=== PATIENT | female | born 1990 | race African-American/Black ===

== ENCOUNTER 2017-01-31 10:52 | Emergency (ER) | payer MEDICAID ==
--- NOTE | 2017-01-31 11:59 | ER Document Report ---
ED Skin Rash/Insect Bite/Abscs - General Chief Complaint: Abscess Stated Complaint: POSSIBLE ABSCESS Mode of Arrival: Ambulatory Information source: Patient Notes: Patient presents complaining of a Bartholin gland abscess for the past 5 months that worsened over the past 2 days. Patient denies any fever. Patient states that she went to her preschool assistant director office and they advised her to come here for treatment. Patient states that she wants to go to surgery she can have this definitively managed. TRAVEL OUTSIDE OF THE [place] IN LAST 30 DAYS: No - HPI Patient complains to provider of: Tender/swollen area Onset: Other Onset/Duration: Worse - 5 months Quality of pain: Sharp Pain Level: 5 Skin Character: Erythema, Tenderness, Warm Skin Temperature: Warm Quality of rash: Painful Exacerbated by: Movement, Walking Similar symptoms previously: No Recently seen / treated by doctor: Yes - Related Data Allergies/Adverse Reactions: amoxicillin Allergy (Verified 01/31/17 10:55) erythromycin base [Erythromycin Base] Allergy (Verified 04/23/15 21:06) Past Medical History - General Information source: Patient - Social History Smoking Status: Current Every Day Smoker Frequency of alcohol use: Occasional Drug Abuse: None Occupation: food scientist Lives with: Family Family History: Reviewed & Not Pertinent Patient has suicidal ideation: No Patient has homicidal ideation: No - Medical History Medical History: Negative Pulmonary Medical History: Reports: Hx Asthma - childhood Renal/ Medical History: Denies: Hx Peritoneal Dialysis Surgical Hx: Negative - Immunizations Hx Diphtheria, Pertussis, Tetanus Vaccination: No - given in ER today Review of Systems - Review of Systems Constitutional: No symptoms reported. denies: Fever EENT: No symptoms reported Cardiovascular: No symptoms reported Respiratory: No symptoms reported Gastrointestinal: No symptoms reported Genitourinary: No symptoms reported Female Genitourinary: Other - Bartholin's gland swelling Musculoskeletal: No symptoms reported Skin: Lumps - Right labia Hematologic/Lymphatic: No symptoms reported Neurological/Psychological: No symptoms reported Physical Exam - Vital signs Vitals: Temp Pulse Resp BP Pulse Ox 98.6 F 99 16 132/79 H 100 01/31/17 10:58 01/31/17 10:58 01/31/17 10:58 01/31/17 10:58 01/31/17 10:58 - General General appearance: Appears well, Alert In distress: None - Respiratory Respiratory status: No respiratory distress Chest status: Nontender Breath sounds: Normal Chest palpation: Normal - Cardiovascular Rhythm: Regular Heart sounds: S1 appreciated, S2 appreciated Murmur: No - Genitourinary External exam: Other - Very large erythematous Bartholin's gland abscess - Extremities General upper extremity: Normal inspection, Normal ROM General lower extremity: Normal inspection, Normal ROM - Neurological Neuro grossly intact: Yes Cognition: Normal Guevara Coma Scale Eye Opening: Spontaneous Guevara Coma Scale Verbal: Oriented Durand Coma Scale Motor: Obeys Commands Durand Coma Scale Total: 15 - Psychological Associated symptoms: Normal affect, Normal mood - Skin Skin Temperature: Warm Skin Moisture: Dry Skin Color: Erythema Skin irregularity: Abscess - Right Bartholin's gland Course - Re-evaluation Re-evalutation: 01/31/17 11:58 Offered patient incision and drainage, patient states she was told to come to the emergency department so that she could see Dr. Bradshaw and be taken to the OR so that she would never have this return again. Spoke with Dr. Cordova regarding patient presentation to the emergency department. Dr. Steinberg states that he offered patient incision and drainage in the office, patient declined and he advised her to come to the emergency department for evaluation. 01/31/17 12:[address] Bradshaw, nurse with relay message, Dr Bradshaw in a case at present 01/31/17 12:[address] Bradshaw who states that patient does not require emergent surgery to treat her Bartholin's abscess. Recommends incision and drainage performed either in the emergency department or having her return to the PLUG MACHINE OPERATOR office to have this incision and drainage performed there. States that after infection has resolved patient can seek surgical treatment as an outpatient. - Vital Signs Vital signs: Temp Pulse Resp BP Pulse Ox 98.1 F 69 16 109/60 100 01/31/17 14:40 01/31/17 14:40 01/31/17 10:58 01/31/17 14:40 01/31/17 14:40 Procedures - Incision and Drainage Right Labia Type: Simple Anesthetic type: 1% Lidocaine mL's of anesthetic: 1 Blade size: 11 I&D procedure: Betadine prep applied Incision Method: Incision made by scalpel Amount/type of drainage: large amount of purulent drainage Notes: 01/31/17 14:[address] a Word catheter due to patient's discomfort. Patient refused to have incision made larger to accommodate the catheter. Patient refused any additional lidocaine due to pain. Discharge - Discharge Clinical Impression: Bartholin's gland abscess, Encounter for incision and drainage procedure Condition: Stable Disposition: HOME, SELF-CARE Instructions: Trimethoprim-Sulfa ([facility]), Oral Narcotic Medication ([facility]), Abscess ([facility]), Post Incision and Drainage Additional Instructions: Return immediately for any new or worsening symptoms Followup with your primary care provider, call tomorrow to make a followup appointment Follow-up with your preschool assistant director for recheck in 2 days. Prescriptions: Oxycodone HCl/Acetaminophen [Percocet 5-325 mg Tablet] 1 tab PO ASDIR PRN #15 tablet PRN Reason: Sulfamethoxazole/Trimethoprim [Bactrim Ds Tablet] 1 each PO BID #14 tablet Forms: Return to Work Referrals: KM CORDOVA MD [Primary Care Provider] - 02/02/17
[2017-01-31] MEDS ORDERED: OXYCODONE-ACETAMINOPHEN 5-325 MG TABLET PO ONE (12:48)
[2017-01-31] MEDS ORDERED: SULFAMETHOXAZOLE/TRIMETHOPRIM 800-160 MG TABLET PO ONE (12:50)
[2017-01-31 14:46] VITALS: BP 109/60
== END 2017-01-31 14:46 | disposition home or self-care (01) ==
LOC: ER 10:52
PROC: 0U9LXZZ Drainage of Vestibular Gland, External Approach (ICD-10-PCS; principal; 2017-01-31)
DX: N75.1 Abscess of Bartholin's gland (principal); F17.200 Nicotine dependence, unspecified, uncomplicated; Z88.0 Allergy status to penicillin; Z88.1 Allergy status to other antibiotic agents
CPT/HCPCS: 56420; 99282; J3490

== ENCOUNTER 2017-06-10 20:26 | Emergency (ER) | payer MEDICAID ==
[2017-06-10] MEDS ORDERED: CLINDAMYCIN HCL 150 MG CAPSULE PO ONE (23:24)
[2017-06-10] MEDS ORDERED: HYDROMORPHONE HCL INJ/PF 2 MG/ML AMPULE IM ONE (23:25)
[2017-06-10] MEDS ORDERED: LIDOCAINE 2% INJ (20 MG/ML) 20 ML MDV INJ ONE (23:25)
[2017-06-11] MEDS ORDERED: HYDROCODONE/ACETAMINOPHEN 5-325 MG 6 TAB/DSPK PO PRN (02:03)
[2017-06-11] MEDS ORDERED: HYDROCODONE/ACETAMINOPHEN 5-325 MG TABLET PO ONE (02:03)
--- NOTE | 2017-06-11 02:08 | ER Document Report ---
ED General - General Chief Complaint: Abscess Stated Complaint: VAGINAL PROBLEM Time Seen by Provider: 06/10/17 23:17 Notes: Patient is a 26-year-old female presents with complaint of a Bartholin's gland abscess. He said this is a fourth time she has had them. [facility] She is post follow-up with him on about possibly having what sounds be marsupialization done. She started having low- grade fevers today. No other complaints. TRAVEL OUTSIDE OF THE [place] IN LAST 30 DAYS: No - Related Data Allergies/Adverse Reactions: amoxicillin Allergy (Verified 06/10/17 20:46) erythromycin base [Erythromycin Base] Allergy (Verified 06/10/17 20:46) Past Medical History - Social History Smoking Status: Never Smoker Frequency of alcohol use: None Drug Abuse: None Family History: Reviewed & Not Pertinent Pulmonary Medical History: Reports: Hx Asthma - childhood Renal/ Medical History: Denies: Hx Peritoneal Dialysis - Immunizations Hx Diphtheria, Pertussis, Tetanus Vaccination: No - given in ER today Physical Exam - Vital signs Vitals: Temp Pulse Resp BP Pulse Ox 100.1 F 110 H 24 H 123/86 H 97 06/10/17 20:46 06/10/17 20:46 06/10/17 20:46 06/10/17 20:46 06/10/17 20:46 Course - Re-evaluation Re-evalutation: 06/11/17 03:28 On initial incision and drainage patient would not let me make a significant incision therefore is just a small hole that straining the Bartholin's gland abscess from. She does not well tolerate this well at all. when patient was going to be discharged she is concerned as starting to feel back up she is not unexpected being that she would not tolerate me making a decent size incision. I went back talk to her again and told her the importance of making decent size incision. She is adamant that she is not when he cut on anymore. Her mother says that she does not tolerate pain all and that this is typical of her. I informed her that I am willing to actually sedate her for this. Patient first is refusing but now she is going to let me try to sedate her. I will give her IM ketamine to see if this helps. We will then extend the incision to try to make it large enough so that she actually drains appropriately. 06/11/17 04:34 Patient given 150 mg of ketamine IM. This provided some sedation. Incision was extended over the abscess and now it drains much better. Abscess completely drained at this time. Once patient is fully awake and recovered from the ketamine she will be discharged home. 06/11/17 07:00 Nurse has informed me that the patient is now fully awake and back to her baseline. Patient will be discharged home. I informed mother that the patient is to return to ER if she has recurrent swelling, fevers, or appears unwell. She has an upcoming appointment with her meat press operator. At that time they are supposed to discuss marsupialization which I think is probably the appropriate procedure for her at this point. Dictation attestation. - Vital Signs Vital signs: Temp Pulse Resp BP Pulse Ox 98.6 F 85 20 126/86 H 99 06/11/17 03:06 06/11/17 03:06 06/11/17 06:31 06/11/17 06:31 06/11/17 06:31 Procedures - Conscious Sedation Conscious sedation Consent obtained: Yes - verbal Indication: abscess I&D Last meal: more than 6 hours ago Normal healthy pt.: P1. - ASA Classification Airway Evaluation: Normal anatomy Mallampati Classification: Class 1 Used during procedure: Suction available, Pulse ox on pt., monitor and storage bin tender on pt. Medications administered: Ketamine Reversal agents: None I personally performed/intraservice time: 31-45 min Complications: No - Patient given 150mg of Ketamine IM which provided adequate sedation - Incision and Drainage vaginal Type: Simple Anesthetic type: 2% Lidocaine mL's of anesthetic: 3 Blade size: 11 I&D procedure: Betadine prep applied Incision Method: Incision made by scalpel Amount/type of drainage: 5mls of purulent drainage Notes: 06/11/17 06:57 My first incision was over the anterior aspect of the vaginal labia as that is where most swelling was. She does have some bloody discharge without purulent discharge. I then made an incision of the inferior aspect. I was only able to barely poked the area as the patient's does not tolerate any pain very well and was very hard to keep still. This allowed some some drainage. It was just a very small opening and therefore drainage is very slow. Patient refusing further enlargement of the incision. 4 patient left the area was started to swell back up and therefore I went and talked her again informed her that unless I explained incision the small hole made which is still up and should be back to the same problem. After long discussion she allowed me to sedate her with ketamine. Given sedation I was able to large the incision and then fully evacuate purulent drainage. I did consider placing a packing however the patient just does not tolerate any probing or touching of the area and the mother says in the past any type of drain or packing it was placed came out immediately. Discharge - Discharge Clinical Impression: Bartholin's gland abscess Condition: Good Disposition: HOME, SELF-CARE Additional Instructions: ABSCESS: You have an abscess (boil). This a pus-forming infection, usually due to staph. Some boils may be left to drain on their own, but most require lancing. From the time the tender lump first appears, it may be three or four days before the abscess is ready to royal. Local heat and rest help at this stage of treatment. An antibiotic may prevent spread of the infection. Once the abscess is opened, packing may be placed into it. This is done so pus is not sealed inside by premature closure of the cavity. The packing will be removed at your follow-up visit or you may be advised to remove it yourself at home. Sometimes this packing must be replaced a few times during healing. The wound will heal with surprisingly little scar. Depending on the size and location of an abscess, healing can take one to four weeks. You may shower and wash the area around the incision site two or three times a day. Antibiotics may be prescribed, but are usually not necessary after an abscess has been drained. If you develop fever, chills, worsening pain, or increasing swelling in the area, call the doctor or return immediately. POST INCISION AND DRAINAGE: You have had an incision made to allow drainage of an abscess. The incision must remain open so that pus and debris can drain from the wound. If the abscess cavity is large, packing is placed. This keeps the tissues from collapsing and trapping pus inside, while the body shrinks the cavity. The packing may need to be replaced every day or two. The physician will instruct you on the packing. Keep a bulky dressing over the area. Replace it if it becomes saturated with blood or pus. Do not disturb the packing (if present). You may shower and cleanse the area with gentle soap and warm water two or three times a day. Local warmth may be soothing, and may promote faster healing. Return if you develop high fever or chills, or if you note spreading redness, increasing swelling, or increasing tenderness. ORAL NARCOTIC MEDICATION: You have been given a prescription for pain control. This medication is a narcotic. It's best taken with food, as nausea can result if taken on an empty stomach. Don't operate machinery or drive within six hours of taking this medication. Do not combine this medicine with alcohol, or with any medication which can cause sedation (such as cold tablets or sleeping pills) unless you get permission from the physician. Narcotics tend to cause constipation. If possible, drink plenty of fluids and eat a diet high in fiber and fruits. FOLLOW-UP CARE: Most simple abscesses will not require a follow up visit. If you had packing placed in the abscess, remove it as instructed by the physician. If you have been referred to a physician for follow-up care, call the physicians office for an appointment as you were instructed or within the next two days. If you experience worsening or a significant change in your symptoms, return to the Emergency Department at any time for re-evaluation. [facility]. please return to the ER immediately if you have recurrent worsening swelling, recurrent fevers, not responding to tylenol, or if you feel that you are worsening. Prescriptions: Clindamycin HCl 300 mg PO ASDIR #56 capsule Hydrocodone/Acetaminophen [[place] 5-325 mg Tablet] 1 tab PO Q4 PRN #16 tablet PRN Reason: For Breakthrough Pain Referrals: RONNIE REAVES MD [Primary Care Provider] - Follow up as needed
[2017-06-11] MEDS ORDERED: KETAMINE HCL INJ 500 MG/10 ML VIAL IM ONE (03:25)
[2017-06-11] MEDS ORDERED: LIDOCAINE 2% INJ (20 MG/ML) 20 ML MDV INJ ONE (03:29)
[2017-06-11] MEDS ORDERED: ONDANSETRON 4 MG TAB.RAPDIS ONE (05:14)
[2017-06-11 06:36] VITALS: BP 126/86
== END 2017-06-11 06:50 | disposition home or self-care (01) ==
LOC: ER 20:26
PROC: 0U9L0ZZ Drainage of Vestibular Gland, Open Approach (ICD-10-PCS; principal; 2017-06-10)
DX: N75.1 Abscess of Bartholin's gland (principal); Z88.1 Allergy status to other antibiotic agents; Z88.0 Allergy status to penicillin
CPT/HCPCS: 56420; 99283; 96372; 99152; J3490 ×4; S0119; J1170

== ENCOUNTER 2018-02-16 08:42 | Day surgery (SDC) | payer MEDICAID ==
[2018-02-13 12:21] LABS: HEMATOCRIT 39.7 % (36.0-47.0); HEMOGLOBIN 13.5 g/dL (12.0-15.5); MEAN CORPUSCULAR HEMOGLOBIN 30.8 pg (27.0-33.4); MEAN CORPUSCULAR VOLUME 91 fl (80-97); PLATELET COUNT 227 10^3/uL (150-450); RED BLOOD COUNT 4.38 10^6/uL (3.72-5.28); RED CELL DISTRIBUTION WIDTH 12.8 % (11.5-14.0); WHITE BLOOD COUNT 8.2 10^3/uL (4.0-10.5)
[2018-02-13 12:36] LABS: APPEARANCE,URINE SLIGHTLY-CLOUDY; BILIRUBIN,URINE NEGATIVE (NEGATIVE); COLOR,URINE YELLOW; GLUCOSE, URINE NEGATIVE (NEGATIVE); KETONES,URINE NEGATIVE (NEGATIVE); LEUKOCYTE ESTERASE,URINE NEGATIVE (NEGATIVE); NITRITE,URINE NEGATIVE (NEGATIVE); PROTEIN,URINE NEGATIVE (NEGATIVE); URINE SPECIFIC GRAVITY 1.018
[~2018-02-16 08:42] MED LIST: LACTATED RINGERS 1000 ML IV PRN; LIDOCAINE 0.5% INJ-PF (5 MG/ML) 50 ML SDV SUBCUT PRN; LIDOCAINE 1%/EPINEPHRINE INJ 20 ML VIAL ONE
[2018-02-16] MEDS ORDERED: HYDROMORPHONE HCL INJ/PF 2 MG/ML AMPULE ONE (08:44)
[2018-02-16] MEDS ORDERED: MIDAZOLAM 2 MG/2 ML INJ ONE ×2 (08:44→09:12)
[2018-02-16] MEDS ORDERED: ONDANSETRON HCL INJ/PF 4 MG/2 ML SDV ONE ×2 (08:45→12:30)
[2018-02-16] MEDS ORDERED: PROPOFOL INJ 200 MG/20 ML VIAL IV ONE (08:45)
[2018-02-16] MEDS ORDERED: EPHEDRINE SULFATE INJ 50 MG/1 ML AMPULE ONE (08:45)
[2018-02-16] MEDS ORDERED: MIDAZOLAM 2 MG/2 ML INJ IV ONE (09:15)
[2018-02-16] MEDS ORDERED: MEPERIDINE HCL/PF INJ 25 MG/1 ML DISP.SYRIN IV PRN (09:38)
[2018-02-16] MEDS ORDERED: PROMETHAZINE HCL INJ 25 MG/1 ML VIAL IV PRN (09:38)
[2018-02-16] MEDS ORDERED: FENTANYL CITRATE INJ/PF 100 MCG/2 ML AMPUL IV PRN ×3 (09:38)
[2018-02-16] MEDS ORDERED: DIPHENHYDRAMINE HCL 50 MG/ML VIAL IV PRN (09:38)
[2018-02-16] MEDS: FENTANYL CITRATE INJ/PF 100 MCG/2 ML AMPUL ONE ×2 (10:55→11:00)
--- NOTE | 2018-02-16 11:15 | OPERATIVE REPORT E ---
Operative Report NAME: ARACELI DAVIDSON : 1990 AGE: 27Y DATE OF SURGERY: 02/16/2018 ROOM: PREOPERATIVE DIAGNOSIS: Bartholin's and labial cyst. POSTOPERATIVE DIAGNOSIS: Bartholin's and labial cyst. SURGEON: CLAIRE SHAH M.D. ANESTHESIA: Dr. Lam with general. FINDINGS: A 6 cm labial cyst arriving from the Bartholin's gland. COMPLICATIONS: None. ESTIMATED BLOOD LOSS: 50 mL. SPECIMENS REMOVED: Bartholin's cyst. PROCEDURE: Bartholin's cystectomy with labial revision. PROCEDURE IN DETAIL: The patient was taken to the operating room and prepared and draped in a normal sterile fashion in the dorsal lithotomy position. An in-and-out cath was performed of approximately 20 mL of clear urine. The labia and Bartholin's area was injected with approximately 10 mL of 1% lidocaine with epi. Incision was made at the Bartholin's and the Bartholin's cyst was drained. A culture was taken of the fluid. The cyst wall was then grasped with Allis's on both sides and the cyst was then dissected from the underlying mucosa using Metzenbaum's until the back of the cyst could be identified and this was amputated from the underlying tissue. The underlying tissue was then explored and it had stretched and the labial aspect of the cyst was explored. A small amount of the labial tissue was removed in a wedge fashion using Metzenbaum's due to concerns of excessive tissue being left behind. The defect was then closed in layers using 2-0 Vicryl. The first layer was closed using a running stitch. The rest of the layers were closed using interrupted sutures of the same 2-0 Vicryl. When the defect became more superficial, I realized that there was still quite a bit of excessive labial tissue left and so 2 more small sections were removed using the Metzenbaum's in order to make the labia appear much more symmetric. Once this was accomplished leaving the labia looking more alike, I closed the superficial layer in a running fashion using 3-0 Vicryl. The patient tolerated the procedure well. Sponge, lap, and needle counts were correct x2 and the patient was taken to recovery in stable condition. DICTATING PHYSICIAN: CLAIRE SHAH M.D. [id number] PHY#: [id number] ID: [id number] JOB#: [id number] ACCT: [id number] cc:CLAIRE SHAH M.D. >
[2018-02-16] MEDS ORDERED: MORPHINE SULFATE 10 MG/ML INJ IM PRN (11:51)
[2018-02-16] MEDS ORDERED: OXYCODONE-ACETAMINOPHEN 5-325 MG TABLET PO PRN ×2 (11:52→11:53)
[2018-02-16] MEDS ORDERED: IBUPROFEN 800 MG TABLET PO PRN (11:52)
[2018-02-16] MEDS ORDERED: OXYCODONE-ACETAMINOPHEN 5-325 MG TABLET ONE (11:53)
[2018-02-16] MEDS ORDERED: RINGERS SOLUTION,LACTATED 1,000 ML IV PRN (12:28)
[2018-02-16 15:37] VITALS: BP 156/92
== END 2018-02-16 14:10 | disposition home or self-care (01) ==
LOC: OROUT 08:42
PROVIDERS: ATTEND Obstetrics & Gynecology
DX: N75.0 Cyst of Bartholin's gland (principal); J45.909 Unspecified asthma, uncomplicated; Z87.891 Personal history of nicotine dependence; Z88.1 Allergy status to other antibiotic agents; Z88.0 Allergy status to penicillin
CPT/HCPCS: 36415; 87070; 87205; 85027; 81025; 87075; 81001; 88305 ×2; 56740; J2250; J3010; J3490; J1170; J2405; J2704; 940

== ENCOUNTER 2019-07-21 00:21 | Inpatient (IN) | payer MEDICAID ==
[2019-07-21] MEDS ORDERED: OXYTOCIN 10 UNIT/ML VIAL ONE (00:29)
[2019-07-21] MEDS ORDERED: LIDOCAINE 1% INJ-PF (10 MG/ML) 30 ML SDV ONE (00:29)
[2019-07-21] MEDS ORDERED: MISOPROSTOL 0.2 MG TABLET ONE (00:29)
[2019-07-21] MEDS ORDERED: OXYTOCIN/NORMAL SALINE 20 UNIT/1,000 ML RTUINJ ONE (00:29)
[2019-07-21] MEDS ORDERED: ACETAMINOPHEN 650 MG SUPP.RECT PR PRN (01:06)
[2019-07-21] MEDS ORDERED: PROMETHAZINE HCL 25 MG TABLET PO PRN (01:06)
[2019-07-21] MEDS ORDERED: MAGNESIUM HYDROXIDE SUSP 30 ML UDCUP PO PRN (01:06)
[2019-07-21] MEDS ORDERED: MEASLES,MUMPS&RUBELLA VACC/PF 0.5 ML VIAL SUBCUT PRN (01:06)
[2019-07-21] MEDS ORDERED: PROMETHAZINE HCL 25 MG SUPP.RECT PR PRN (01:06)
[2019-07-21] MEDS ORDERED: GLYCERIN/WITCH HAZEL LEAF 1 EACH MED..WIPE TP PRN (01:06)
[2019-07-21] MEDS ORDERED: PROMETHAZINE HCL INJ 25 MG/1 ML VIAL IV PRN (01:06)
[2019-07-21] MEDS ORDERED: NA PHOS,M-B/NA PHOS,DI-BA (ADULT) 133 ML ENEMA PR PRN (01:06)
[2019-07-21] MEDS ORDERED: OXYTOCIN/NORMAL SALINE 20 UNIT/1,000 ML RTUINJ IV PRN (01:06)
[2019-07-21] MEDS ORDERED: DIPH/PERTUSS(ACELL)/TETANUS VAC/PF 0.5 ML SYR (>=10YO) IM PRN (01:06)
[2019-07-21] MEDS ORDERED: BENZOCAINE/MENTHOL AEROSOL SPRAY 56 ML TOP PRN (01:06)
[2019-07-21] MEDS ORDERED: DIBUCAINE 1% OINTMENT 56 GM TP PRN (01:06)
[2019-07-21] MEDS ORDERED: ACETAMINOPHEN WITH CODEINE #3 TABLET PO PRN ×2 (01:06)
[2019-07-21] MEDS ORDERED: ZOLPIDEM TARTRATE 5 MG TABLET PO PRN (01:06)
[2019-07-21] MEDS ORDERED: DIPHENHYDRAMINE HCL 25 MG CAPSULE PO PRN (01:06)
[2019-07-21] MEDS ORDERED: PSEUDOEPHEDRINE HCL 30 MG TABLET PO PRN (01:06)
--- NOTE | 2019-07-21 01:13 | Admission Physical ---
Datetime Report Generated by CPN: 07/21/2019 01:13 CURRENT ADMISSION Chief Complaint: Uterine Contractions Indication for Induction: Not Applicable Admit Impression : Term, Intrauterine ; Active Labor Admit Plan: Admit to Unit ALLERGIES Medication Allergies: Yes Medication Allergies: erythromycin base (02/13/2018); amoxicillin (02/13/2018) Latex: No Latex Allergies Food Allergies: None Environmental Allergies: None OBSTETRICAL HISTORY EDC: 08/06/2019 00:00 : 2 Para: 1 Term: 1 : 0 SAB: 0 IAB: 0 Ectopic: 0 Livin Cesareans: 0 VBACs: 0 Multiple Births: 0 Obstetrical History Comments: G1 - at 38 weeks ( PHYSICAL EXAM General: Normal HEENT: Normal Neurologic: Normal Thyroid: Normal Heart: Normal Lungs: Normal Breast: Deferred Back: Normal Abdomen: Normal Genitourinary Exam: Normal Extremities: Normal DTRs: Normal Pelvic Type: Adequate Vital Signs: Reviewed VAGINAL EXAM Dilatation: 10 Effacement: 100 FETUS A EGA: 37.5 Monitoring: External US FHR- Baseline: 140 Variability: Moderate 6-25bpm Presentation: Vertex Admit Comment: anticipate delivery INFORMED CONSENT Signature: with User ID: [email or web address]
[2019-07-21] MEDS ORDERED: IBUPROFEN 800 MG TABLET ONE (01:27)
[2019-07-21] MEDS ORDERED: ACETAMINOPHEN WITH CODEINE #3 TABLET ONE (01:27)
[2019-07-21] MEDS ORDERED: RINGERS SOLUTION,LACTATED 1,000 ML IV PRN (01:52)
[2019-07-21] MEDS ORDERED: MAGNESIUM SULFATE 20 GM/500 ML RTUINJ IV ONE ×2 (02:11→12:23)
[2019-07-21] MEDS ORDERED: MAGNESIUM SULFATE 4 GM/100 ML RTUPB IV ONE ×2 (02:11→02:30)
[2019-07-21 02:45] LABS: ABSOLUTE LYMPHOCYTES (AUTO) 0.8 10^3/uL (0.5-4.7); ABSOLUTE MONOCYTES (AUTO) 0.4 10^3/uL (0.1-1.4); BASOPHILS % (AUTO) 0.3 % (0-2); EOSINOPHILS % (AUTO) 0.1 % (0-6); HEMATOCRIT 35.7 % (36.0-47.0); HEMOGLOBIN 11.6 g/dL (12.0-15.5); LYMPHOCYTES % (AUTO) 6.2 % (13-45); MEAN CORPUSCULAR HEMOGLOBIN 29.1 pg (27.0-33.4); MEAN CORPUSCULAR HGB CONC 32.5 g/dL (32.0-36.0); MEAN CORPUSCULAR VOLUME 90 fl (80-97); MONOCYTES % (AUTO) 3.3 % (3-13); PLATELET COUNT 206 10^3/uL (150-450); RED BLOOD COUNT 3.98 10^6/uL (3.72-5.28); RED CELL DISTRIBUTION WIDTH 14.6 % (11.5-14.0); SEGMENTED NEUTROPHILS % (AUTO) 90.1 % (42-78); TOTAL CELLS COUNTED % (AUTO) 100 %; WHITE BLOOD COUNT 13.3 10^3/uL (4.0-10.5)
[2019-07-21 03:00] LABS: ALBUMIN 3.3 g/dL (3.5-5.0); ALKALINE PHOSPHATASE 273 U/L (38-126); ANION GAP 8 (5-19); ASPARTATE AMINO TRANSFERASE 17 U/L (14-36); BILIRUBIN,DIRECT 0.1 mg/dL (0.0-0.4); BILIRUBIN,TOTAL 0.4 mg/dL (0.2-1.3); BLOOD UREA NITROGEN 6 mg/dL (7-20); CALCIUM 8.2 mg/dL (8.4-10.2); CARBON DIOXIDE 23 mmol/L (22-30); CHLORIDE 106 mmol/L (98-107); GLUCOSE 108 mg/dL (75-110); POTASSIUM 4.5 mmol/L (3.6-5.0); TOTAL PROTEIN 6.3 g/dL (6.3-8.2); URIC ACID 5.6 mg/dL (2.5-6.2)
[2019-07-21] MEDS: MAGNESIUM SULFATE 20 GM/500 ML RTUINJ IV PRN ×2 (03:05→12:26)
[2019-07-21] MEDS ORDERED: HYDRALAZINE HCL INJ/PF 20 MG/1 ML SDV ONE ×3 (04:44→18:42)
[2019-07-21] MEDS ORDERED: HYDRALAZINE HCL INJ/PF 20 MG/1 ML SDV IV ONE (05:00)
[2019-07-21 06:02] LABS: URINE AMPHETAMINES SCREEN NEGATIVE; URINE BARBITURATES SCREEN NEGATIVE; URINE BENZODIAZEPINES SCREEN NEGATIVE; URINE COCAINE SCREEN NEGATIVE; URINE METHADONE SCREEN NEGATIVE; URINE PHENCYCLIDINE SCREEN NEGATIVE
[2019-07-21 06:11] LABS: URINE MARIJUANA (THC) SCREEN UNCONFIRMED POSITIVE
--- NOTE | 2019-07-21 06:26 | Delivery Summary ---
Del Sum A-C Datetime Report Generated by CPN: 07/21/2019 06:25 DELIVERY PERSONNEL DELIVERY PERSONNEL: [id number] Delivery Doctor:: Jessica Mckeon MD Labor and Delivery Nurse:: Nataliya Armas RNstate fire marshal Nurse:: Patricia Basurto RN Nursery Nurse:: Landy Venegas RN Kindergartners Helper/TROUBLE LOCATOR TEST DESK: Yolanda Delgado, ST MATERNAL INFORMATION Delivery Anesthesia: None Medications After Delivery: Pitocin Bolus-Please Comment; Pitocin Drip 20 Units/1000ml NSS Estimated Blood Loss (ml): 250 Maternal Complications: Precipitous Labor (<3hrs) LABOR SUMMARY EDC: 08/06/2019 00:00 No. Babies in Womb: 1 Attempted: No Labor Anesthesia: None LABOR INFORMATION Reason for Induction: Not Applicable Onset of Labor: 07/20/2019 21:00 Complete Dilatation: 07/21/2019 00:30 Oxytocin: N/A Group B Beta Strep: Negative Steroids Given: None Reason Steroids Not Administered: Not Applicable MEMBRANES Membranes Rupture Method: Spontaneous Rupture of Membranes: 07/21/2019 00:15 Length of Rupture (hr): 0.63 Amniotic Fluid Color: Clear Amniotic Fluid Amount: Moderate Amniotic Fluid Odor: Normal STAGES OF LABOR Stage 1 hr: 3 Stage 1 min: 30 Stage 2 hr: 0 Stage 2 min: 23 Stage 3 hr: 0 Stage 3 min: 5 Total Time in Labor hr: 3 Total Time in Labor min: 58 VAGINAL DELIVERY Episiotomy: None Laceration #1: None Laceration Extension #1: N/A Laceration Repair: Not Applicable Sponge Count Correct: Yes CSECTION DELIVERY Primary Indication: N/A Secondary Indication: N/A CSection Incision: N/A BABY A INFORMATION Delivery Date/Time: 07/21/2019 00:53 Method of Delivery: Vaginal Born in Route : No : N/A Forceps: N/A Vacuum Extraction: N/A Shoulder Dystocia : No PRESENTATION/POSITION BABY A Presentation: Cephalic Cephalic Presentation: Vertex Vertex Position: Left Occipital Anterior Breech Presentation: N/A PLACENTA INFORMATION BABY A Placenta Delivery Time : 07/21/2019 00:58 Placenta Method of Delivery: Spontaneous Placenta Status: Delivered SCORES BABY A Heart Rate 1 min: >100 bpm Resp Effort 1 min: Good Cry Reflex Irritability 1 min: Cough or Sneeze or Pulls Away Muscle Tone 1 min: Active Motion Color 1 min: Blue/Pale Resuscitation Effort 1 min: Tactile Stimulation SCORE 1 MIN: 8 Heart Rate 5 min: >100 bpm Resp Effort 5 min: Good Cry Reflex Irritability 5 min: Cough or Sneeze or Pulls Away Muscle Tone 5 min: Active Motion Color 5 min: Blue/Pale Resuscitation Effort 5 min: Tactile Stimulation SCORE 5 MIN: 8 INFORMATION BABY A Gestational Age at Delivery: 37.5 Gestational Status: Early Term- 37- 38.6 Weeks Outcome : Liveborn Condition : Stable Infant Sex: Female IDENTIFICATION BABY A Verification Date/Time: 07/21/2019 01:11 ID Band Number: [id number] Mother's Name Verified: Yes RN Verifying Infant: Fabricio Basurto DANTE Additional Verifying Personnel: Gildardo Armas RN WEIGHT/LENGTH BABY A Infant Birthweight (gm): 2800 Weight (lb): 6 Infant Weight (oz): 3 Infant Length (in): 18.75 Infant Length (cm): 47.63 CORD INFORMATION BABY A No. Cord Vessels: 3 Nuchal Cord : Around Neck x1, Loose True Knot: 1 Cord Blood Taken: Yes-For Storage (Mom's Blood type +) Infant Suction: None ASSESSMENT BABY A Infant Complications: None Physical Findings at Delivery: Within Normal Limits Respirations: Appears Normal Skin to Skin: Yes Skin to Skin Time (min): 60 Human Services Worker/ALS Called : No Transferred To: Remains with Mother BABY B INFORMATION : N/A SIGNATURES Signature: with User ID: [email or web address]
[2019-07-21 06:48] LABS: APPEARANCE,URINE CLOUDY; BILIRUBIN,URINE NEGATIVE (NEGATIVE); COLOR,URINE RED; GLUCOSE, URINE NEGATIVE (NEGATIVE); KETONES,URINE NEGATIVE (NEGATIVE); LEUKOCYTE ESTERASE,URINE NEGATIVE (NEGATIVE); NITRITE,URINE NEGATIVE (NEGATIVE); PROTEIN,URINE 100 mg/dL (NEGATIVE); URINE SPECIFIC GRAVITY 1.008; UROBILINOGEN,URINE NEGATIVE mg/dL (<2.0)
[2019-07-21] MEDS ORDERED: HYDROXYZINE PAMOATE 50 MG CAPSULE ONE (09:44)
[2019-07-21] MEDS ORDERED: LABETALOL HCL 200 MG TABLET ONE (16:57)
[2019-07-21] MEDS ORDERED: LABETALOL HCL INJ 20 MG/4 ML DISP.SYRIN IV ONE ×2 (17:49→17:51)
[2019-07-21] MEDS ORDERED: NALBUPHINE HCL INJ 10 MG/1 ML AMPULE INJ ONE (19:00)
[2019-07-21] MEDS ORDERED: ACETAMINOPHEN 325 MG TABLET ONE (19:58)
[2019-07-21] MEDS ORDERED: ACETAMINOPHEN 325 MG TABLET PO ONE (20:30)
[2019-07-21] MEDS: DOCUSATE SODIUM 100 MG CAPSULE PO SCH (20:31)
[2019-07-21] MEDS: FERROUS SULFATE 325 MG TABLET PO SCH (20:31)
[2019-07-21] MEDS ORDERED: LABETALOL HCL 200 MG TABLET PO SCH (22:00)
[2019-07-21] MEDS: LABETALOL HCL 200 MG TABLET PO SCH (22:03)
[2019-07-21] MEDS: FAMOTIDINE 20 MG TABLET PO SCH (22:15)
[2019-07-21] MEDS: HYDROXYZINE PAMOATE 50 MG CAPSULE PO SCH (22:15)
[2019-07-21] MEDS: IBUPROFEN 800 MG TABLET PO SCH (22:16)
[2019-07-22] MEDS: HYDROXYZINE PAMOATE 50 MG CAPSULE PO SCH ×4 (06:01→22:07)
[2019-07-22] MEDS: IBUPROFEN 800 MG TABLET PO SCH ×4 (06:02→22:07)
[2019-07-22 08:07] LABS: HEMATOCRIT 29.4 % (36.0-47.0); HEMOGLOBIN 9.9 g/dL (12.0-15.5); MEAN CORPUSCULAR HEMOGLOBIN 30.1 pg (27.0-33.4); MEAN CORPUSCULAR HGB CONC 33.6 g/dL (32.0-36.0); MEAN CORPUSCULAR VOLUME 90 fl (80-97); PLATELET COUNT 178 10^3/uL (150-450); RED BLOOD COUNT 3.29 10^6/uL (3.72-5.28); RED CELL DISTRIBUTION WIDTH 14.2 % (11.5-14.0); WHITE BLOOD COUNT 6.8 10^3/uL (4.0-10.5)
[2019-07-22] MEDS: DOCUSATE SODIUM 100 MG CAPSULE PO SCH ×3 (08:22→18:35)
[2019-07-22] MEDS: FAMOTIDINE 20 MG TABLET PO SCH ×3 (08:24→21:58)
[2019-07-22] MEDS: PRENATAL VITAMIN W DHA CAPSULE PO SCH ×2 (08:24→09:46)
[2019-07-22] MEDS: FERROUS SULFATE 325 MG TABLET PO SCH ×3 (08:24→18:35)
[2019-07-22] MEDS: SENNOSIDES/DOCUSATE 8.6-50 MG 1 EACH TABLET PO SCH ×2 (08:25→09:46)
[2019-07-22] MEDS: LABETALOL HCL 200 MG TABLET PO SCH ×2 (09:46→22:08)
--- NOTE | 2019-07-22 12:17 | PDOC PROGRESS REPORT ---
Subjective-OB Progress Note for:: 07/22/19 Subjective: Pt doing well, reports light bleeding, reg diet and voiding without difficulty. She would like to speak to a sr. social media & mobile manager regarding baby's drug testing. Denies headache. Physical Exam (OB) Vital Signs: Temp Pulse Resp BP Pulse Ox 98.3 F 76 16 137/85 H 100 07/22/19 11:38 07/22/19 11:38 07/22/19 11:38 07/22/19 11:38 07/22/19 11:38 Intake & Output 07/21/19 07/22/19 07/23/19 06:59 06:59 06:59 Intake Total 468 Balance 468 Weight 126.6 kg - PIH/Pre-Eclampsia DTR's: 1 + Clonus: Negative Headache: Absent Epigastric Pain: No Visual Changes: No - Lochia Lochia Amount: Scant < 10 ml Lochia Color: Rubra/Red - Abdomen Description: Tender, Soft Hernia Present: No Fundal Description: Firm, Midline Fundal Height: u/u - u/2 Objective-Diagnostic Laboratory: 07/22/19 07:46 07/21/19 02:20 07/22/19 07:46 WBC 6.8 RBC 3.29 L Hgb 9.9 L Hct 29.4 L MCV 90 MCH 30.1 MCHC 33.6 RDW 14.2 H Plt Count 178 Assessment and Plan(PN) - Assessment and Plan (1) Pre-eclampsia in third trimester Is this a current diagnosis for this admission?: Yes (2) Vaginal delivery Is this a current diagnosis for this admission?: Yes - Time Spent with Patient Time with patient: Less than 15 minutes Medications reviewed and adjusted accordingly: Yes - Disposition Anticipated Discharge: Home Within: within 24 hours
[2019-07-23] MEDS: IBUPROFEN 800 MG TABLET PO SCH (06:19)
[2019-07-23] MEDS: HYDROXYZINE PAMOATE 50 MG CAPSULE PO SCH (06:21)
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
[2019-07-23] MEDS: LABETALOL HCL 200 MG TABLET PO SCH (10:00)
[2019-07-23] MEDS: SENNOSIDES/DOCUSATE 8.6-50 MG 1 EACH TABLET PO SCH (10:00)
[2019-07-23] MEDS: PRENATAL VITAMIN W DHA CAPSULE PO SCH (10:00)
[2019-07-23] MEDS: FERROUS SULFATE 325 MG TABLET PO SCH (10:00)
[2019-07-23] MEDS: DOCUSATE SODIUM 100 MG CAPSULE PO SCH (10:00)
[2019-07-23] MEDS: FAMOTIDINE 20 MG TABLET PO SCH (10:00)
[2019-07-23 10:37] VITALS: BP 124/80
== END 2019-07-23 12:55 | disposition home or self-care (01) | DRG 806 ==
LOC: LC 00:21 → LR 00:42 → 2N 20:46
PROVIDERS: ADMIT Obstetrics & Gynecology; ATTEND Obstetrics & Gynecology
PROC: 10E0XZZ Delivery of Products of Conception, External Approach (ICD-10-PCS; principal; 2019-07-21)
DX: O14.04 Mild to moderate pre-eclampsia, complicating childbirth (principal); D62 Acute posthemorrhagic anemia; Z37.0 Single live birth; F12.90 Cannabis use, unspecified, uncomplicated; O99.323 Drug use complicating pregnancy, third trimester; O62.3 Precipitate labor; O90.81 Anemia of the puerperium; O69.81X0 Labor and delivery complicated by cord around neck, without compression, not applicable or unspecified; Z62.810 Personal history of physical and sexual abuse in childhood; Z88.1 Allergy status to other antibiotic agents; Z88.3 Allergy status to other anti-infective agents; Z3A.37 37 weeks gestation of pregnancy; Z28.21 Immunization not carried out because of patient refusal
CPT/HCPCS: 36415; 80053; 80307; 80349; 81005; 83615; 84550; 85025; 85027; 86592; 86850; 86900; 86901; G0480; J0360; J2590; J3475; J3490